=== PATIENT | female | born 1995 | race Caucasian/White ===

== ENCOUNTER 2020-01-24 00:09 | Inpatient (IN) | payer BC, OTHER ==
[~2020-01-24] VITALS: Ht 177.8 cm; Wt 128.6 kg
[2020-01-24] MEDS ORDERED: OXYTOCIN 30U/ 0.9% NaCL 500ML 500 ML IV ONE (00:11)
[2020-01-24] MEDS ORDERED: CALCIUM CARBONATE 500 MG TAB.CHEW PO PRN (00:30)
[2020-01-24] MEDS ORDERED: TERBUTALINE 1 MG/ML, 1ML IVPush PRN (00:30)
[2020-01-24] MEDS ORDERED: MISOPROSTOL 25 MCG TABLET VG PRN (00:30)
[2020-01-24] MEDS ORDERED: FENTANYL PF 100 MCG/2ML IVPush PRN (00:30)
[2020-01-24] MEDS ORDERED: LABETALOL 5MG/ML, 20ML IVPush PRN ×3 (00:30)
[2020-01-24] MEDS ORDERED: TERBUTALINE 1 MG/ML, 1ML SQ PRN (00:30)
[2020-01-24] MEDS ORDERED: METOCLOPRAMIDE 5 MG/ML, 2ML IVPush PRN (00:30)
[2020-01-24] MEDS ORDERED: ONDANSETRON 2MG/ML, 2ML IVPush PRN ×2 (00:30→14:30)
[2020-01-24] MEDS ORDERED: SODIUM CITRATE/CITRIC ACID 30 ML UDC PO PRN (00:30)
[2020-01-24] MEDS ORDERED: hydrALAzine 20 MG/ML, 1ML IVPush ONE (00:30)
[2020-01-24] MEDS ORDERED: FENTANYL PF 100 MCG/2ML IV PRN (00:30)
[2020-01-24 00:42] LABS: MICROSCOPIC NOT IND
[2020-01-24 00:49] LABS: BASOPHILS # (AUTO) 0.04 x10^3/uL (0-0.1); BASOPHILS % (AUTO) 0 % (0-1); EOSINOPHILS # (AUTO) 0.19 x10^3/uL (0-0.4); EOSINOPHILS % (AUTO) 2 % (1-7); LYMPHOCYTES # (AUTO) 2.28 x10^3/uL (1-3.4); LYMPHOCYTES % (AUTO) 20 % (22-44); MD NO; MEAN CORPUSCULAR HGB CONC 32.6 g/dL (32.4-35.8); MEAN CORPUSCULAR VOLUME 82.8 fL (80-100); MEAN PLATELET VOLUME 9.1 fL (7.4-10.4); MONOCYTES # (AUTO) 0.81 x10^3/uL (0.2-0.8); MONOCYTES % (AUTO) 7 % (2-9); NEUTROPHILS # (AUTO) 7.89 x10^3/uL (1.8-6.8); NEUTROPHILS % (AUTO) 70 % (42-75); PLATELET COUNT 322 x10^3/uL (130-400); RED BLOOD COUNT 4.51 x10^6/uL (3.82-5.3)
[2020-01-24 00:53] LABS: ALANINE AMINOTRANSFERASE 18 U/L (12-78); ANION GAP 8 mmol/L (5-15); CALCIUM 9.5 mg/dL (8.5-10.1); CHLORIDE 108 mmol/L (98-107); CREATININE 0.68 mg/dL (0.55-1.02)
[2020-01-24 00:56] LABS: ALKALINE PHOSPHATASE 121 U/L (45-117); BILIRUBIN,TOTAL 0.1 mg/dL (0.2-1.0); TOTAL PROTEIN 7.8 g/dL (6.4-8.2)
[2020-01-24 00:57] LABS: BILIRUBIN, DIRECT < 0.1 mg/dL (0.1-0.2)
[2020-01-24 01:00] VITALS: BP 133/83
[2020-01-24] MEDS ORDERED: MISOPROSTOL 25 MCG TABLET ONE (01:19)
[2020-01-24] MEDS ORDERED: MISOPROSTOL 200 MCG TABLET ONE (01:19)
[2020-01-24] MEDS ORDERED: LIDOCAINE 1%, 20ML ONE (01:19)
[2020-01-24] MEDS ORDERED: OXYTOCIN 30U/ 0.9% NaCL 500ML 500 ML ONE (01:20)
[2020-01-24 01:39] VITALS: BP 131/83
[2020-01-24] MEDS ORDERED: FENTANYL/BUPIV./NS/PF 250 ML EPIDCONT SCH ×3 (03:04→14:07)
[2020-01-24] MEDS ORDERED: FENTANYL PF 500 MCG, BUPIVACAINE/PF 0.5%, 30ML 62.5 ML in SODIUM CHLORIDE 0.9% 177.5 ML EPIDCONT SCH ×2 (03:30→13:00)
[2020-01-24] MEDS: LACTATED RINGERS 1,000 ML IV SCH ×3 (06:18→16:11)
[2020-01-24] MEDS: D5%-LACTATED RINGERS 1,000 ML IV SCH ×3 (08:11→18:04)
[2020-01-24] MEDS ORDERED: LACTATED RINGERS 1,000 ML IVBOLUS PRN ×2 (12:30→14:30)
[2020-01-24] MEDS ORDERED: BUPIVACAINE 0.25% ONE (13:42)
[2020-01-24] MEDS ORDERED: LACTATED RINGERS 1,000 ML IV SCH (14:07)
[2020-01-24] MEDS ORDERED: PREN1TAB60 PO (14:21)
[2020-01-24] MEDS ORDERED: ASPI-515 PO (14:21)
[2020-01-24] MEDS ORDERED: OXYTOCIN 30U/ 0.9% NaCL 500ML 500 ML IV PRN (14:22)
[2020-01-24] MEDS ORDERED: EPHEDRINE 50 MG/ML, 1ML IVPush PRN (14:30)
[2020-01-24] MEDS ORDERED: NALOXONE 0.4 MG/ML, 1ML IVPush PRN (14:30)
[2020-01-24] MEDS ORDERED: DIPHENHYDRAMINE 50 MG/ML, 1ML IVPush PRN (14:30)
[2020-01-24] MEDS ORDERED: LIDOCAINE/MPF 2%-EPI 1:200K, 20 ML ONE (17:13)
[2020-01-24] MEDS: OXYTOCIN 30U/ 0.9% NaCL 500ML 500 ML IV SCH (20:34)
[2020-01-24] MEDS ORDERED: HYDROcodone/APAP 5/325 TABLET PO PRN (21:00)
[2020-01-24] MEDS ORDERED: ACETAMINOPHEN 325 MG TABLET PO PRN ×3 (21:00)
[2020-01-24] MEDS ORDERED: IBUPROFEN 800 MG TABLET PO PRN (21:00)
[2020-01-24] MEDS ORDERED: SIMETHICONE 80 MG CHEW TAB PO PRN (21:00)
[2020-01-24] MEDS ORDERED: MAGNESIUM HYDROXIDE 8%, 30ML UDC PO PRN (21:00)
[2020-01-24] MEDS ORDERED: MISOPROSTOL 200 MCG TABLET PO PRN (21:00)
[2020-01-24] MEDS ORDERED: MISOPROSTOL 200 MCG TABLET PR PRN (21:00)
[2020-01-24] MEDS ORDERED: MISOPROSTOL 200 MCG TABLET SL PRN (21:00)
[2020-01-24] MEDS ORDERED: METHYLERGONOVINE 0.2 MG/ML IM PRN (21:00)
[2020-01-24 22:00] VITALS: BP 119/78
[2020-01-24] MEDS: IBUPROFEN 600 MG TABLET PO PRN (23:09)
[2020-01-25] MEDS: D5%-LACTATED RINGERS 1,000 ML IV SCH (00:11)
[2020-01-25] MEDS: LACTATED RINGERS 1,000 ML IV SCH ×2 (00:11→19:00)
[2020-01-25] MEDS: OXYcodone/APAP 5/325MG TABLET PO PRN ×4 (00:30→18:54)
[2020-01-25 00:46] VITALS: BP 129/85
[2020-01-25 04:05] VITALS: BP 119/71
[2020-01-25 04:07] LABS: BASOPHILS # (AUTO) 0.09 x10^3/uL (0-0.1); BASOPHILS % (AUTO) 1 % (0-1); EOSINOPHILS # (AUTO) 0.08 x10^3/uL (0-0.4); EOSINOPHILS % (AUTO) 1 % (1-7); LYMPHOCYTES # (AUTO) 2.08 x10^3/uL (1-3.4); LYMPHOCYTES % (AUTO) 16 % (22-44); MD NO; MEAN CORPUSCULAR HEMOGLOBIN 26.6 pg (27.0-34.8); MEAN CORPUSCULAR HGB CONC 32.2 g/dL (32.4-35.8); MEAN CORPUSCULAR VOLUME 82.8 fL (80-100); MEAN PLATELET VOLUME 8.8 fL (7.4-10.4); MONOCYTES # (AUTO) 0.86 x10^3/uL (0.2-0.8); MONOCYTES % (AUTO) 7 % (2-9); NEUTROPHILS # (AUTO) 10.14 x10^3/uL (1.8-6.8); NEUTROPHILS % (AUTO) 77 % (42-75); PLATELET COUNT 255 x10^3/uL (130-400); RED BLOOD COUNT 3.91 x10^6/uL (3.82-5.3); RED CELL DISTRIBUTION WIDTH 13.8 % (9.6-15.2)
[2020-01-25] MEDS: OXYTOCIN 30U/ 0.9% NaCL 500ML 500 ML IV SCH ×2 (04:15→19:00)
[2020-01-25 07:45] VITALS: BP 124/82
[2020-01-25] MEDS: IBUPROFEN 600 MG TABLET PO PRN ×2 (08:19→14:17)
[2020-01-25] MEDS: PRENATAL VIT/IRON/FA 1 EACH TABLET PO SCH (08:19)
[2020-01-25] MEDS: DOCUSATE 100 MG CAPSULE PO PRN (08:19)
[2020-01-25 12:30] VITALS: BP 128/84
[2020-01-25 19:30] VITALS: BP 137/80
[2020-01-26] MEDS: LACTATED RINGERS 1,000 ML IV SCH (00:11)
[2020-01-26] MEDS: IBUPROFEN 600 MG TABLET PO PRN ×2 (01:33→08:13)
[2020-01-26] MEDS: OXYTOCIN 30U/ 0.9% NaCL 500ML 500 ML IV SCH (02:34)
[2020-01-26 08:10] VITALS: BP 116/80
[2020-01-26] MEDS: DOCUSATE 100 MG CAPSULE PO PRN (08:13)
[2020-01-26] MEDS: PRENATAL VIT/IRON/FA 1 EACH TABLET PO SCH (08:13)
[2020-01-26] MEDS: OXYcodone/APAP 5/325MG TABLET PO PRN (08:14)
[2020-01-26] MEDS ORDERED: DOCU-131 PO (11:09)
[2020-01-26] MEDS ORDERED: IBUP-1223 PO (11:09)
[2020-01-26] MEDS ORDERED: OXYC-302 PO (11:09)
== END 2020-01-26 12:25 | disposition home or self-care (01) | DRG 768 ==
LOC: LDIP 00:09 → 2NW 22:31
PROVIDERS: ADMIT Student in an Organized Health Care Education/Training Program; ATTEND Student in an Organized Health Care Education/Training Program
PROC: 10907ZC Drainage of Amniotic Fluid, Therapeutic from Products of Conception, Via Natural or Artificial Opening (ICD-10-PCS; principal; 2020-01-26)
PROC: 0DQR0ZZ Repair Anal Sphincter, Open Approach (ICD-10-PCS; 2020-01-26)
PROC: 10E0XZZ Delivery of Products of Conception, External Approach (ICD-10-PCS; 2020-01-26)
PROC: 3E033VJ Introduction of Other Hormone into Peripheral Vein, Percutaneous Approach (ICD-10-PCS; 2020-01-26)
DX: O10.92 Unspecified pre-existing hypertension complicating childbirth (principal); Z37.0 Single live birth; O70.20 Third degree perineal laceration during delivery, unspecified; E66.01 Morbid (severe) obesity due to excess calories; O99.284 Endocrine, nutritional and metabolic diseases complicating childbirth; E03.9 Hypothyroidism, unspecified; O99.214 Obesity complicating childbirth; O62.0 Primary inadequate contractions; Z80.0 Family history of malignant neoplasm of digestive organs; Z79.82 Long term (current) use of aspirin; Z3A.37 37 weeks gestation of pregnancy; Z82.49 Family history of ischemic heart disease and other diseases of the circulatory system
CPT/HCPCS: 36415; J7121; 80053; 81003; 82248; 82570; 84156; 84550; 85025; 86592; 86850; 86900; G0378; J3010; J3490; J2590; J7050; J7120